=== PATIENT | female | born 1975 | race Caucasian/White ===

== ENCOUNTER 2017-02-16 21:06 | Emergency (ER) | payer OTHER ==
[~2017-02-16] VITALS: Ht 162.6 cm; Wt 71.0 kg
[2017-02-16 21:10] VITALS: Ht 162.6 cm; Wt 71.0 kg
[2017-02-16] MEDS ORDERED: ELIM TOP (23:43)
[2017-02-16] MEDS ORDERED: PERM59LI8 TP (23:43)
[2017-02-16] MEDS ORDERED: HYDR-3011 PO (23:43)
[2017-02-16] MEDS ORDERED: CEPH-443 PO (23:43)
--- NOTE | 2017-02-17 00:01 | ERD ---
ER Documentation Chief Complaint Date/Time DATE: 02/16/17 TIME: 23:56 Chief Complaint dx with scabies med ran out rash still present HPI 42-year-old female presents here in emergency department for complaints of itching and a rash all over the body that started one week ago, was seen by primary care doctor, was told to be having scabies. Patient finished the tube of permethrin continues to symptoms. Patient's complaining of itching all over the body, some of the wounds are red and swollen per patient. Patient denies any fever or chills. ROS All systems reviewed and are negative except as per history of present illness. Medications Home Meds Active Scripts Cephalexin* (Keflex*) 500 Mg Capsule, 500 MG PO QID for 10 Days, CAP Prov:XUAN MEEHAN NP 02/16/17 Hydroxyzine Hcl* (Hydroxyzine Hcl*) 25 Mg Tablet, 25 MG PO Q8H Y for ITCHING, # 30 TAB Prov:XUAN MEEHAN NP 02/16/17 Permethrin (Nix) 60 Ml Liquid, 60 ML TP DAILY, #1 BOT Prov:XUAN MEEHAN NP 02/16/17 Permethrin* (Elimite*) 5% Cr, 1 APPLIC TOP ONCE, #1 TUB Prov:XUAN MEEHAN NP 02/16/17 Allergies Allergies: Coded Allergies: No Known Allergy (Unverified , 02/16/17) PMhx/Soc Medical and Surgical Hx: pt denies Medical Hx, pt denies Surgical Hx Hx Alcohol Use: No Hx Substance Use: No Hx Tobacco Use: No Smoking Status: Never smoker FmHx Family History: No coronary disease, No diabetes, No other Physical Exam Vitals Vital Signs Date Time Temp Pulse Resp B/P Pulse Ox O2 Delivery O2 Flow Rate FiO2 02/16/17 21:10 98.1 81 16 124/74 100 Physical Exam GENERAL: The patient is well developed and appropriate for usual state of health, in no apparent distress. CHEST: Clear to auscultation bilaterally. There are no rales, wheezes or rhonchi. HEART: Regular rate and rhythm. No murmurs, clicks, rubs or gallops. No S3 or S4. ABDOMEN: Soft, nontender and nondistended. Good bowel sounds. No rebound or guarding. No gross peritonitis. No gross organomegaly or masses. No Torres sign or McBurney point tenderness. BACK: No midline or flank tenderness. EXTREMITIES: Equal pulses bilaterally. There is no peripheral clubbing, cyanosis or edema. No focal swelling or erythema. Full range of motion. Grossly neurovascularly intact. NEURO: Alert and oriented. Cranial nerves 2-12 intact. Motor strength in all 4 extremities with 5/5 strength. Sensation grossly intact. Normal speech and gait. SKIN: maculopapular rash noted all over the body with some excoriations noted, some erythema surrounding some of the rash. There is no apparent rash or petechia. The skin is warm and dry. HEMATOLOGIC AND LYMPHATIC: There is no evidence of excessive bruising or lymphedema. No gross cervical, axillary, or inguinal lymphadenopathy. Procedures/MDM Medical decision making: Patient's symptoms most likely consistent with infected scabies. No symptoms of any coagulopathies. No symptoms of any allergic reaction. No symptoms of any anaphylactic shock. Prescription was given for permethrin, hydroxyzine, Keflex, is advised to follow-up with primary care doctor in 2-3 days for reevaluation of symptoms. Patient was advised to return to emergency department for any worsening symptoms. Disposition: Home. stable. Departure Diagnosis: Primary Impression: Scabies Condition: Stable Patient Instructions: XUAN Tristan NP Feb 17, 2017 00:01
[2017-02-17 00:20] VITALS: PULSE 68; RESP 20; TEMP 98.6
== END 2017-02-17 00:15 | disposition home or self-care (01) ==
LOC: FTE 21:06
DX: B86 Scabies (principal)
CPT/HCPCS: 99284

== ENCOUNTER 2017-06-11 15:54 | Emergency (ER) | END 2017-06-11 18:04 | disposition home or self-care (01) ==

== ENCOUNTER 2017-10-13 11:08 | Emergency (ER) | END 2017-10-13 14:17 | disposition home or self-care (01) ==

== ENCOUNTER 2017-10-21 13:15 | Emergency (ER) | END 2017-10-21 14:34 | disposition home or self-care (01) ==